=== PATIENT | female | born 1975 | race Caucasian/White ===

== ENCOUNTER → 2017-03-16 | Outpatient (CLI) | payer BC | LOC: MAMO 03-14 14:20 | DX: Z12.31 Encounter for screening mammogram for malignant neoplasm of breast (principal); J45.909 Unspecified asthma, uncomplicated | CPT/HCPCS: G0202 ==

== ENCOUNTER → 2017-04-19 | Outpatient (CLI) | payer BC | LOC: MAMO 10:00 | DX: R92.8 Other abnormal and inconclusive findings on diagnostic imaging of breast (principal); N64.89 Other specified disorders of breast | CPT/HCPCS: G0206 ==

== ENCOUNTER → 2017-08-12 | Outpatient (CLI) | payer BC | LOC: KOH-I 12:54 | DX: J32.9 Chronic sinusitis, unspecified (principal) | CPT/HCPCS: 70486 ==

== ENCOUNTER → 2017-08-15 | Outpatient (CLI) | payer BC | LOC: LBRF 14:32 | DX: R30.0 Dysuria (principal) | CPT/HCPCS: 87077; 87086; 87186 ==

== ENCOUNTER → 2020-12-05 | Outpatient (CLI) | payer BC ==
[~2020-12-05] MED LIST: 24HR ALLERGY REL5 MG PO; ALPRAZOLAM0.5 MG PO; ASMANEX220 MC3 INH; ASPIRIN 325MG325 MG PO; AUGMENTIN 875-1 EACH PO; B12 PO; COLACE 100MG C100 MG PO; COZAAR50 MG PO; DYMISTA NASAL S23 GM; ELDERBERRY GUMMIES PO; ELIQUIS5 MG PO; ESOMEPRAZOLE MA40 MG PO; FERROUS SULFATE PO; FLECAINIDE ACET50 MG PO; FLECANIDE PO; FLONASE 0.05% N16 GM; LISINOPRIL30 MG PO; LISINOPRIL5 MG PO; LOPRESSOR 50 MG50 MG PO; MEDROL DOSEPAK 24 MG PO; METFORMIN HCL750 MG PO; METOPROLOL TART25 MG PO; MONTELUKAST SOD10 MG PO; NEXIUM40 MG PO; NORCO 7.5-3251 EACH PO; PAIN RELIEF650 MG PO; PROAIR HFA8.5 GM INH; PROTONIX40 MG PO; RANITIDINE HCL150 M1 PO; SINGULAIR10 MG PO; VITAMIN C500 M4 PO; VITAMIN D31250 MCG PO; XYZAL5 MG PO; ZINC PO; ZOFRAN4 MG PO; [UNRECOGNIZED DRUG - OTHER] PO
[2020-12-05 14:10] LABS: HEMOGLOBIN 13.4 gm/dl (12.3-15.3); RED BLOOD COUNT 4.56 M/UL (4.00-5.10); WHITE BLOOD COUNT 8.8 K/UL (4.5-11.0)
[2020-12-05 14:33] LABS: BUN/CREATININE RATIO 14 (0-10)
== END ==
LOC: LAB 13:40
PROVIDERS: Internal Medicine Cardiovascular Disease
DX: I48.0 Paroxysmal atrial fibrillation (principal); R00.2 Palpitations; R07.9 Chest pain, unspecified
CPT/HCPCS: 36415; 71046; 80048; 85025

== ENCOUNTER 2020-12-09 09:56 | Outpatient (CLI) | payer BC ==
[~2020-12-09 09:56] MED LIST changes: -24HR ALLERGY REL5 MG PO; -ALPRAZOLAM0.5 MG PO; -ASMANEX220 MC3 INH; -ELDERBERRY GUMMIES PO; -ESOMEPRAZOLE MA40 MG PO; -FLECAINIDE ACET50 MG PO; -FLONASE 0.05% N16 GM; -LISINOPRIL30 MG PO; -LOPRESSOR 50 MG50 MG PO; -MONTELUKAST SOD10 MG PO; -PAIN RELIEF650 MG PO; -VITAMIN C500 M4 PO; -VITAMIN D31250 MCG PO; -ZINC PO
[2020-12-09] MEDS ORDERED: MONTELUKAST SOD10 MG PO (12:10)
[2020-12-09] MEDS ORDERED: ELIQUIS5 MG PO (12:11)
[2020-12-09] MEDS ORDERED: FLONASE 0.05% N16 GM (12:11)
[2020-12-09] MEDS ORDERED: ESOMEPRAZOLE MA40 MG PO (12:12)
[2020-12-09] MEDS ORDERED: FLECAINIDE ACET50 MG PO (12:12)
[2020-12-09] MEDS ORDERED: VITAMIN D31250 MCG PO (12:13)
[2020-12-09] MEDS ORDERED: ALPRAZOLAM0.5 MG PO (12:13)
[2020-12-09] MEDS ORDERED: VITAMIN C500 M4 PO (12:14)
[2020-12-09] MEDS ORDERED: 24HR ALLERGY REL5 MG PO (12:14)
[2020-12-09] MEDS ORDERED: ZINC PO (12:15)
[2020-12-09] MEDS ORDERED: ELDERBERRY GUMMIES PO (12:15)
[2020-12-09] MEDS ORDERED: ASMANEX220 MC3 INH (12:16)
[2020-12-09] MEDS ORDERED: PAIN RELIEF650 MG PO (12:16)
[2020-12-09] MEDS ORDERED: LISINOPRIL30 MG PO (12:19)
[2020-12-09] MEDS ORDERED: LOPRESSOR 50 MG50 MG PO (12:19)
== END 2020-12-10 12:28 | disposition home or self-care (01) ==
LOC: CATH 09:56 → MED SURG 4 17:06 → CATH 12-10 12:28
DX: I47.1 Supraventricular tachycardia (principal); I45.89 Other specified conduction disorders; I27.20 Pulmonary hypertension, unspecified; I10 Essential (primary) hypertension; I48.0 Paroxysmal atrial fibrillation; E11.9 Type 2 diabetes mellitus without complications; E55.9 Vitamin D deficiency, unspecified; Z79.01 Long term (current) use of anticoagulants; Z87.74 Personal history of (corrected) congenital malformations of heart and circulatory system; Z82.49 Family history of ischemic heart disease and other diseases of the circulatory system; Z87.891 Personal history of nicotine dependence; Z79.899 Other long term (current) drug therapy
CPT/HCPCS: 84703; 93005; 93609; 93621; 93623; 94664; 94760; 99152; 99153; C1730; C1733; C1766; J0461; J1200; J1644; J2250; J3010; J7040; J7050

== ENCOUNTER 2021-08-13 14:39 | Emergency (ER) | payer BC ==
[~2021-08-13] VITALS: Ht 167.6 cm; Wt 113.4 kg
[~2021-08-13 14:39] MED LIST changes: +24HR ALLERGY REL5 MG PO; +ALPRAZOLAM0.5 MG PO; +ASMANEX220 MC3 INH; +ELDERBERRY GUMMIES PO; +ESOMEPRAZOLE MA40 MG PO; +FLECAINIDE ACET50 MG PO; +FLONASE 0.05% N16 GM; +LISINOPRIL30 MG PO; +LOPRESSOR 50 MG50 MG PO; +MONTELUKAST SOD10 MG PO; +PAIN RELIEF650 MG PO; +VITAMIN C500 M4 PO; +VITAMIN D31250 MCG PO; +ZINC PO
[2021-08-13 16:20] LABS: HEMOGLOBIN 13.2 gm/dl (12.3-15.3); RED BLOOD COUNT 4.45 M/UL (4.00-5.10); WHITE BLOOD COUNT 3.4 K/UL (4.5-11.0)
[2021-08-13 16:47] LABS: BUN/CREATININE RATIO 13 (0-10)
== END 2021-08-13 22:24 | disposition home or self-care (01) ==
LOC: ER1 14:39
PROVIDERS: Nurse Practitioner
DX: U07.1 COVID-19 (principal)
CPT/HCPCS: 71046; 80053; 84703; 85025; 85379; 93005; 99285; M0243; Q9967